=== PATIENT | male | born 1975 | race Caucasian/White ===

== ENCOUNTER 2022-12-29 18:26 | Emergency (ER) | payer OTHER ==
[~2022-12-29] VITALS: Ht 172.7 cm; Wt 77.1 kg
[2022-12-29] MEDS ORDERED: SILVADENE20 GM TOP (18:36)
[2022-12-29 18:44] VITALS: BP 117/76
== END 2022-12-29 18:47 | disposition home or self-care (01) ==
LOC: ED 18:26
DX: T22.60XA Corrosion of second degree of shoulder and upper limb, except wrist and hand, unspecified site, initial encounter (principal); T32.0 Corrosions involving less than 10% of body surface